=== PATIENT | male | born 1970 | race Caucasian/White ===

== ENCOUNTER 2017-02-07 20:55 | Inpatient (IN) | payer OTHER ==
[~2017-02-07] VITALS: Ht 182.9 cm; Wt 77.3 kg
[2017-02-07] MEDS ORDERED: LORazepam 2 MG/ML, 1ML ONE (21:41)
[2017-02-08] MEDS: LEVETIRACETAM 500 MG TABLET PO SCH ×4 (02:00→21:36)
[2017-02-08] MEDS: THIAMINE 100MG TABLET PO SCH ×2 (09:00→10:00)
[2017-02-08] MEDS: FOLIC ACID 1 MG TABLET PO SCH ×2 (09:00→10:00)
[2017-02-08] MEDS: PHENYTOIN 100 MG CAPSULE PO SCH ×2 (10:00→21:35)
[2017-02-08 15:40] VITALS: BP 113/67
[2017-02-08] MEDS ORDERED: LORazepam 2 MG/ML, 1ML IV PRN ×6 (16:00→16:30)
[2017-02-08] MEDS: ENOXAPARIN 40 MG/0.4 ML SQ SCH (16:00)
[2017-02-08] MEDS: NICOTINE 14MG/24 HR PATCH.TD24 TD SCH (16:00)
[2017-02-08] MEDS ORDERED: LORazepam 0.5MG TABLET PO PRN (16:30)
[2017-02-08] MEDS ORDERED: LORazepam 1MG TABLET PO PRN ×4 (16:30)
[2017-02-08] MEDS ORDERED: GADOBUTROL 7.5 MMOL/7.5 ML PFS ONE (17:19)
[2017-02-08] MEDS ORDERED: PLEASE ENTER HEIGHT AND WEIGHT MC SCH (17:30)
[2017-02-08] MEDS ORDERED: PLEASE ENTER ALLERGIES MC SCH ×2 (17:30)
[2017-02-08 20:01] VITALS: BP 117/77
[2017-02-08] MEDS ORDERED: LEVETIRACETAM 500 MG TABLET PO SCH (21:00)
[2017-02-09] MEDS: POTASSIUM CHLORIDE 20 MEQ, MAGNESIUM SULFATE 1 GM, THIAMINE 100 MG, FOLIC ACID 1 MG, MV... IV SCH (00:30)
[2017-02-09 02:23] VITALS: BP 100/70
[2017-02-09 05:58] LABS: ASPARTATE AMINO TRANSFERASE 120 U/L (15-37); BLOOD UREA NITROGEN 8 mg/dL (7-18)
[2017-02-09 07:58] VITALS: BP 109/71
[2017-02-09] MEDS ORDERED: MAGNESIUM SULFATE PMX 2GM/50ML 50 ML IV ONE (08:00)
[2017-02-09] MEDS ORDERED: POTASSIUM CHLORIDE 20 MEQ TAB.ER.PRT PO ONE (08:00)
[2017-02-09] MEDS: FOLIC ACID 1 MG TABLET PO SCH (08:34)
[2017-02-09] MEDS: THIAMINE 100MG TABLET PO SCH (08:35)
[2017-02-09] MEDS: LEVETIRACETAM 500 MG TABLET PO SCH ×2 (08:35→21:00)
[2017-02-09] MEDS ORDERED: PNEUMOCOCCAL 23 VACCINE IM-VACC ONE (09:00)
[2017-02-09] MEDS: PHENYTOIN 100 MG CAPSULE PO SCH (09:00)
[2017-02-09 09:55] VITALS: BP_SYST 115; BP_SYST 116; BP_SYST 118; BP_DIAS 77; BP_DIAS 79; BP_DIAS 80
[2017-02-09] MEDS: SODIUM CHLORIDE 0.9% 1,000 ML IV SCH ×2 (10:39→23:15)
[2017-02-09 11:17] LABS: DAU SCREEN DISCLAIMER
[2017-02-09] MEDS: NICOTINE 14MG/24 HR PATCH.TD24 TD SCH (13:05)
[2017-02-09 13:25] VITALS: BP 126/72
[2017-02-09 14:13] LABS: ASPARTATE AMINO TRANSFERASE 211 U/L (15-37); BLOOD UREA NITROGEN 8 mg/dL (7-18)
[2017-02-09 14:22] LABS: ASPARTATE AMINO TRANSFERASE 167 U/L (15-37); BLOOD UREA NITROGEN 7 mg/dL (7-18)
[2017-02-09] MEDS: ENOXAPARIN 40 MG/0.4 ML SQ SCH (16:59)
[2017-02-09 19:11] VITALS: BP 127/94
[2017-02-09] MEDS: ZONISAMIDE 50 MG CAPSULE PO SCH (21:00)
[2017-02-09] MEDS: ATORVASTATIN 20 MG TABLET PO SCH (21:00)
[2017-02-10] MEDS: POTASSIUM CHLORIDE 20 MEQ, MAGNESIUM SULFATE 1 GM, THIAMINE 100 MG, FOLIC ACID 1 MG, MV... IV SCH (01:21)
[2017-02-10 01:38] VITALS: BP 134/94
[2017-02-10] MEDS: ASPIRIN 81 MG TABLET EC PO SCH (05:43)
[2017-02-10 06:52] LABS: ASPARTATE AMINO TRANSFERASE 173 U/L (15-37); BLOOD UREA NITROGEN 4 mg/dL (7-18)
[2017-02-10 07:12] VITALS: BP 126/86
[2017-02-10 07:43] VITALS: BP 138/91
[2017-02-10 07:45] VITALS: BP 115/80
[2017-02-10] MEDS: FOLIC ACID 1 MG TABLET PO SCH (09:49)
[2017-02-10] MEDS: PHENYTOIN 100 MG CAPSULE PO SCH (09:49)
[2017-02-10] MEDS: LEVETIRACETAM 500 MG TABLET PO SCH ×2 (09:49→20:01)
[2017-02-10] MEDS: THIAMINE 100MG TABLET PO SCH (09:49)
[2017-02-10] MEDS: SODIUM CHLORIDE 0.9% 1,000 ML IV SCH ×2 (12:38→21:29)
[2017-02-10 14:06] VITALS: BP 103/69
[2017-02-10] MEDS: NICOTINE 14MG/24 HR PATCH.TD24 TD SCH (16:52)
[2017-02-10] MEDS: ENOXAPARIN 40 MG/0.4 ML SQ SCH (16:52)
[2017-02-10 19:31] VITALS: BP 123/84
[2017-02-10] MEDS: ATORVASTATIN 20 MG TABLET PO SCH (20:00)
[2017-02-10] MEDS: ZONISAMIDE 50 MG CAPSULE PO SCH (20:00)
[2017-02-11 01:08] VITALS: BP 117/67
[2017-02-11] MEDS: SODIUM CHLORIDE 0.9% 1,000 ML IV SCH ×2 (04:51→21:11)
[2017-02-11 05:03] LABS: ASPARTATE AMINO TRANSFERASE 387 U/L (15-37); BLOOD UREA NITROGEN 6 mg/dL (7-18)
[2017-02-11] MEDS: POTASSIUM CHLORIDE 20 MEQ, MAGNESIUM SULFATE 1 GM, THIAMINE 100 MG, FOLIC ACID 1 MG, MV... IV SCH (05:46)
[2017-02-11] MEDS: ASPIRIN 81 MG TABLET EC PO SCH (05:46)
[2017-02-11 06:11] LABS: DAU SCREEN DISCLAIMER
[2017-02-11 07:06] VITALS: BP 111/72
[2017-02-11] MEDS: FOLIC ACID 1 MG TABLET PO SCH (10:29)
[2017-02-11] MEDS: LEVETIRACETAM 500 MG TABLET PO SCH ×2 (10:29→21:08)
[2017-02-11] MEDS: THIAMINE 100MG TABLET PO SCH (10:29)
[2017-02-11] MEDS: PHENYTOIN 100 MG CAPSULE PO SCH (10:29)
[2017-02-11 13:27] VITALS: BP 113/86
[2017-02-11] MEDS: ENOXAPARIN 40 MG/0.4 ML SQ SCH (17:40)
[2017-02-11] MEDS: NICOTINE 14MG/24 HR PATCH.TD24 TD SCH (17:40)
[2017-02-11 18:59] VITALS: BP 128/87
[2017-02-11] MEDS: ZONISAMIDE 50 MG CAPSULE PO SCH (21:09)
[2017-02-12 01:59] VITALS: BP 120/78
[2017-02-12 04:28] LABS: BLOOD UREA NITROGEN 10 mg/dL (7-18)
[2017-02-12] MEDS: SODIUM CHLORIDE 0.9% 1,000 ML IV SCH ×3 (05:44→23:22)
[2017-02-12] MEDS: POTASSIUM CHLORIDE 20 MEQ, MAGNESIUM SULFATE 1 GM, THIAMINE 100 MG, FOLIC ACID 1 MG, MV... IV SCH (05:47)
[2017-02-12] MEDS: ASPIRIN 81 MG TABLET EC PO SCH (05:51)
[2017-02-12 07:32] LABS: DIFF TOTAL CELLS COUNTED 100 CELL DIFF
[2017-02-12 07:33] LABS: ANISOCYTOSIS 1+
[2017-02-12 07:38] LABS: VERIFY COUNTS? YES
[2017-02-12 07:48] VITALS: BP 114/74
[2017-02-12] MEDS: LEVETIRACETAM 500 MG TABLET PO SCH ×2 (08:01→20:20)
[2017-02-12] MEDS: FOLIC ACID 1 MG TABLET PO SCH (08:01)
[2017-02-12] MEDS: THIAMINE 100MG TABLET PO SCH (08:01)
[2017-02-12 10:03] LABS: HEPATITIS C VIRUS ANTIBODY Nonreactive (Nonreactive)
[2017-02-12 12:33] VITALS: BP_SYST 111; BP_SYST 133; BP_DIAS 77; BP_DIAS 84
[2017-02-12 12:34] VITALS: BP 116/89
[2017-02-12] MEDS: NICOTINE 14MG/24 HR PATCH.TD24 TD SCH (16:05)
[2017-02-12] MEDS: ENOXAPARIN 40 MG/0.4 ML SQ SCH (16:07)
[2017-02-12 19:37] VITALS: BP 122/81
[2017-02-12] MEDS: ZONISAMIDE 50 MG CAPSULE PO SCH (20:20)
[2017-02-13 02:45] VITALS: BP 120/78
[2017-02-13 05:53] LABS: ASPARTATE AMINO TRANSFERASE 167 U/L (15-37); BLOOD UREA NITROGEN 11 mg/dL (7-18)
[2017-02-13] MEDS: ASPIRIN 81 MG TABLET EC PO SCH (06:37)
[2017-02-13] MEDS: POTASSIUM CHLORIDE 20 MEQ, MAGNESIUM SULFATE 1 GM, THIAMINE 100 MG, FOLIC ACID 1 MG, MV... IV SCH (06:38)
[2017-02-13 07:46] VITALS: BP 116/76
[2017-02-13] MEDS: FOLIC ACID 1 MG TABLET PO SCH (09:02)
[2017-02-13] MEDS: THIAMINE 100MG TABLET PO SCH (09:02)
[2017-02-13] MEDS: LEVETIRACETAM 500 MG TABLET PO SCH (09:02)
[2017-02-13] MEDS ORDERED: LEVE500T53 PO (09:36)
[2017-02-13] MEDS ORDERED: FOLI-17 PO (09:36)
[2017-02-13] MEDS ORDERED: ZONI50CA2 PO (09:36)
[2017-02-13] MEDS ORDERED: ASPI-621 PO (09:36)
[2017-02-13] MEDS ORDERED: THIA100T6 PO (09:36)
[2017-02-13 13:00] VITALS: BP 130/90
[2017-02-13] MEDS: SODIUM CHLORIDE 0.9% 1,000 ML IV SCH (15:30)
[2017-02-13] MEDS: ENOXAPARIN 40 MG/0.4 ML SQ SCH (16:00)
[2017-02-13] MEDS: NICOTINE 14MG/24 HR PATCH.TD24 TD SCH (16:22)
[2017-02-13 17:25] VITALS: BP 105/71
== END 2017-02-13 17:30 | disposition home or self-care (01) | DRG 101 ==
LOC: ED 20:55 → 4NOR 02-08 01:50
PROVIDERS: ADMIT Internal Medicine; ATTEND Internal Medicine
DX: G40.409 Other generalized epilepsy and epileptic syndromes, not intractable, without status epilepticus (principal); F10.239 Alcohol dependence with withdrawal, unspecified; Q21.1 Atrial septal defect; F43.10 Post-traumatic stress disorder, unspecified; F10.229 Alcohol dependence with intoxication, unspecified; Y90.7 Blood alcohol level of 200-239 mg/100 ml; F17.210 Nicotine dependence, cigarettes, uncomplicated; F32.9 Major depressive disorder, single episode, unspecified; D53.9 Nutritional anemia, unspecified; E87.6 Hypokalemia; E83.42 Hypomagnesemia; K70.10 Alcoholic hepatitis without ascites; I67.9 Cerebrovascular disease, unspecified; K76.0 Fatty (change of) liver, not elsewhere classified; H81.10 Benign paroxysmal vertigo, unspecified ear; Z86.73 Personal history of transient ischemic attack (TIA), and cerebral infarction without residual deficits; Z79.899 Other long term (current) drug therapy
CPT/HCPCS: 36415; 70450; 70553; 76700; 80048; 80053; 80061; 80074; 80076; 80185; 80307; 82040; 82248; 82550; 82607; 82746; 83036; 83735; 84100; 84439; 84443; 85025; 85610; 85730; 90732; 93306; 93880; 95819; 96374; A9585; J1650; J3411; J3475; J3480; J2060; J7030

== ENCOUNTER 2017-07-28 12:23 | Inpatient (IN) | payer MEDICAID ==
[~2017-07-28] VITALS: Ht 182.9 cm; Wt 71.9 kg
[~2017-07-28 12:23] MED LIST: ASPI-621 PO; FOLI-17 PO; LEVE500T53 PO; THIA100T6 PO; ZONI50CA2 PO
[2017-07-28] MEDS ORDERED: SODIUM CHLORIDE FLUSH 10ML SYR IVF ONE (12:30)
[2017-07-28] MEDS ORDERED: LORazepam 2 MG/ML, 1ML IVPush ONE (12:30)
[2017-07-28] MEDS ORDERED: SODIUM CHLORIDE 0.9% 1,000ML IVBOLUS ONE (12:30)
[2017-07-28] MEDS ORDERED: LEVETIRACETAM 500 MG in SODIUM CHLORIDE 0.9% 100 ML IV ONE (12:30)
[2017-07-28] MEDS ORDERED: LORazepam 2 MG/ML, 1ML ONE ×3 (12:46→15:17)
[2017-07-28 12:48] LABS: HEMATOCRIT 38.5 % (39.2-51.8); HEMOGLOBIN 13.4 g/dL (13.7-18.0); WHITE BLOOD COUNT 2.8 x10^3/uL (3.4-10)
[2017-07-28 12:59] LABS: BLOOD UREA NITROGEN 6 mg/dL (7-18)
[2017-07-28] MEDS ORDERED: PLEASE ENTER HEIGHT AND WEIGHT MC SCH (13:00)
[2017-07-28 13:02] LABS: ASPARTATE AMINO TRANSFERASE 405 U/L (15-37)
[2017-07-28] MEDS ORDERED: MAGNESIUM SULFATE IV ONE (14:30)
[2017-07-28] MEDS ORDERED: THIAMINE IV ONE (14:30)
[2017-07-28] MEDS ORDERED: MAGNESIUM SULFATE 4 GM, THIAMINE 100 MG, FOLIC ACID 1 MG, MVI ADULT 10 ML in SODIUM CHL... IV ONE (14:30)
[2017-07-28] MEDS ORDERED: [UNRECOGNIZED DRUG - OTHER] IV ONE (14:30)
[2017-07-28] MEDS ORDERED: MVI ADULT IV ONE (14:30)
[2017-07-28] MEDS: LORazepam 2 MG/ML, 1ML IVPush PRN ×2 (14:34→15:19)
[2017-07-28 16:00] VITALS: BP 124/85
[2017-07-28] MEDS ORDERED: DOCUSATE 100 MG CAPSULE PO PRN (16:00)
[2017-07-28] MEDS ORDERED: LORazepam 2 MG/ML, 1ML IV PRN ×6 (16:00)
[2017-07-28] MEDS ORDERED: LORazepam 1MG TABLET PO PRN ×3 (16:00)
[2017-07-28] MEDS ORDERED: ONDANSETRON 2MG/ML, 2ML IV PRN (16:00)
[2017-07-28] MEDS ORDERED: PHARMACY MAY ADJ FOR RENAL FX MC PRN (16:00)
[2017-07-28] MEDS ORDERED: POTASSIUM CHLORIDE 20 MEQ TAB.ER.PRT PO SCH (17:00)
[2017-07-28] MEDS: HEPARIN 5,000 UNITS/ML, 1ML SQ SCH ×2 (17:27→23:29)
[2017-07-28] MEDS: CHLORDIAZEPOXIDE 10 MG CAPSULE PO SCH ×2 (17:27→20:27)
[2017-07-28] MEDS: ASPIRIN 81 MG TABLET EC PO SCH (17:27)
[2017-07-28] MEDS: SODIUM CHLORIDE 0.9% 1,000 ML IV SCH (17:27)
[2017-07-28] MEDS: LORazepam 1MG TABLET PO PRN (18:08)
[2017-07-28 19:00] VITALS: BP 121/80
[2017-07-28] MEDS: LEVETIRACETAM 500 MG TABLET PO SCH (20:27)
[2017-07-28] MEDS: ZONISAMIDE 50 MG CAPSULE PO SCH (20:27)
[2017-07-28 23:07] LABS: DAU SCREEN DISCLAIMER
[2017-07-29 01:57] VITALS: BP 122/84
[2017-07-29] MEDS: SODIUM CHLORIDE 0.9% 1,000 ML IV SCH (05:03)
[2017-07-29] MEDS: ASPIRIN 81 MG TABLET EC PO SCH (05:27)
[2017-07-29 06:11] LABS: HEMATOCRIT 37.4 % (39.2-51.8); HEMOGLOBIN 13.2 g/dL (13.7-18.0); WHITE BLOOD COUNT 2.8 x10^3/uL (3.4-10)
[2017-07-29 06:23] LABS: ASPARTATE AMINO TRANSFERASE 310 U/L (15-37); BLOOD UREA NITROGEN 3 mg/dL (7-18)
[2017-07-29 08:05] VITALS: BP 124/84
[2017-07-29] MEDS ORDERED: POTASSIUM CHLORIDE IV SCH (09:00)
[2017-07-29] MEDS ORDERED: MAGNESIUM SULFATE IV SCH (09:00)
[2017-07-29] MEDS ORDERED: MVI ADULT IV SCH (09:00)
[2017-07-29] MEDS ORDERED: [UNRECOGNIZED DRUG - OTHER] IV SCH (09:00)
[2017-07-29] MEDS ORDERED: THIAMINE IV SCH (09:00)
[2017-07-29] MEDS: THIAMINE 100MG TABLET PO SCH (10:31)
[2017-07-29] MEDS: HEPARIN 5,000 UNITS/ML, 1ML SQ SCH ×2 (10:31→16:48)
[2017-07-29] MEDS: FOLIC ACID 1 MG TABLET PO SCH (10:31)
[2017-07-29] MEDS: LEVETIRACETAM 500 MG TABLET PO SCH ×2 (10:31→20:31)
[2017-07-29] MEDS: CHLORDIAZEPOXIDE 10 MG CAPSULE PO SCH (10:42)
[2017-07-29] MEDS: MULTIVIT.W/IRON, MINERALS ORAL SOL PO SCH (10:42)
[2017-07-29 16:01] VITALS: BP 112/79
[2017-07-29] MEDS: POTASSIUM CHLORIDE 20 MEQ TAB.ER.PRT PO SCH (16:48)
[2017-07-29] MEDS: IBUPROFEN 200 MG TABLET PO PRN (16:48)
[2017-07-29 19:12] VITALS: BP 122/81
[2017-07-29] MEDS: ZONISAMIDE 50 MG CAPSULE PO SCH (20:31)
[2017-07-30] MEDS: HEPARIN 5,000 UNITS/ML, 1ML SQ SCH ×4 (00:08→20:58)
[2017-07-30 02:30] VITALS: BP 124/83
[2017-07-30 05:05] LABS: HEMATOCRIT 39.9 % (39.2-51.8); HEMOGLOBIN 13.9 g/dL (13.7-18.0); WHITE BLOOD COUNT 3.2 x10^3/uL (3.4-10)
[2017-07-30 05:15] LABS: ASPARTATE AMINO TRANSFERASE 667 U/L (15-37); BLOOD UREA NITROGEN 11 mg/dL (7-18)
[2017-07-30] MEDS: ASPIRIN 81 MG TABLET EC PO SCH (05:31)
[2017-07-30 07:20] VITALS: BP 139/93
[2017-07-30] MEDS: THIAMINE 100MG TABLET PO SCH (08:34)
[2017-07-30] MEDS: POTASSIUM CHLORIDE 20 MEQ TAB.ER.PRT PO SCH (08:34)
[2017-07-30] MEDS: MULTIVIT.W/IRON, MINERALS ORAL SOL PO SCH (08:34)
[2017-07-30] MEDS: IBUPROFEN 200 MG TABLET PO PRN ×2 (08:34→20:58)
[2017-07-30] MEDS: FOLIC ACID 1 MG TABLET PO SCH (08:34)
[2017-07-30] MEDS: LEVETIRACETAM 500 MG TABLET PO SCH ×2 (08:34→20:58)
[2017-07-30] MEDS: LORazepam 1MG TABLET PO PRN (08:34)
[2017-07-30 14:15] VITALS: BP 109/76
[2017-07-30] MEDS: ZONISAMIDE 50 MG CAPSULE PO SCH (20:58)
[2017-07-30] MEDS: LORazepam 0.5MG TABLET PO PRN (20:58)
[2017-07-31] VITALS: BP 127/90
[2017-07-31 03:57] VITALS: BP 117/81
[2017-07-31 05:14] LABS: HEMATOCRIT 39.8 % (39.2-51.8); HEMOGLOBIN 14.1 g/dL (13.7-18.0); WHITE BLOOD COUNT 3.3 x10^3/uL (3.4-10)
[2017-07-31 05:34] LABS: ASPARTATE AMINO TRANSFERASE 444 U/L (15-37); BLOOD UREA NITROGEN 13 mg/dL (7-18)
[2017-07-31] MEDS: IBUPROFEN 200 MG TABLET PO PRN ×2 (05:43→20:27)
[2017-07-31] MEDS: ASPIRIN 81 MG TABLET EC PO SCH (05:43)
[2017-07-31] MEDS: LORazepam 0.5MG TABLET PO PRN (05:43)
[2017-07-31] MEDS: HEPARIN 5,000 UNITS/ML, 1ML SQ SCH ×3 (05:43→20:27)
[2017-07-31 08:17] VITALS: BP 113/72
[2017-07-31] MEDS: FOLIC ACID 1 MG TABLET PO SCH (09:13)
[2017-07-31] MEDS: MULTIVIT.W/IRON, MINERALS ORAL SOL PO SCH (09:13)
[2017-07-31] MEDS: THIAMINE 100MG TABLET PO SCH (09:13)
[2017-07-31] MEDS: LEVETIRACETAM 500 MG TABLET PO SCH ×2 (09:13→20:27)
[2017-07-31 16:38] VITALS: BP 113/76
[2017-07-31 20:16] VITALS: BP 107/74
[2017-07-31] MEDS: ZONISAMIDE 50 MG CAPSULE PO SCH (20:27)
[2017-08-01] VITALS (7 sets, daily range): BP systolic 91–116; BP diastolic 64–77
[2017-08-01] MEDS: HEPARIN 5,000 UNITS/ML, 1ML SQ SCH ×3 (05:48→21:35)
[2017-08-01] MEDS: ASPIRIN 81 MG TABLET EC PO SCH (05:48)
[2017-08-01] MEDS ORDERED: MECLIZINE 12.5 MG TABLET PO PRN (09:00)
[2017-08-01] MEDS ORDERED: SODIUM CHLORIDE NASAL SPRAY 45ML BOTTLE NAS PRN (09:00)
[2017-08-01] MEDS: THIAMINE 100MG TABLET PO SCH (09:01)
[2017-08-01] MEDS: FOLIC ACID 1 MG TABLET PO SCH (09:01)
[2017-08-01] MEDS: LEVETIRACETAM 500 MG TABLET PO SCH ×2 (09:01→21:34)
[2017-08-01] MEDS: MULTIVIT.W/IRON, MINERALS ORAL SOL PO SCH (09:01)
[2017-08-01] MEDS: LORATADINE 10 MG TABLET PO SCH (11:12)
[2017-08-01] MEDS: IBUPROFEN 200 MG TABLET PO PRN (14:19)
[2017-08-01] MEDS: ZONISAMIDE 50 MG CAPSULE PO SCH (21:36)
[2017-08-02 01:30] VITALS: BP 115/78
[2017-08-02 02:00] VITALS: BP 105/70
[2017-08-02 06:08] LABS: BLOOD UREA NITROGEN 20 mg/dL (7-18)
[2017-08-02 06:14] LABS: HEMATOCRIT 40.4 % (39.2-51.8); HEMOGLOBIN 14.2 g/dL (13.7-18.0); WHITE BLOOD COUNT 5.5 x10^3/uL (3.4-10)
[2017-08-02 06:15] LABS: ASPARTATE AMINO TRANSFERASE 126 U/L (15-37)
[2017-08-02] MEDS: HEPARIN 5,000 UNITS/ML, 1ML SQ SCH ×3 (06:20→20:33)
[2017-08-02] MEDS: ASPIRIN 81 MG TABLET EC PO SCH (06:20)
[2017-08-02 06:43] LABS: DIFF TOTAL CELLS COUNTED 100 CELL DIFF
[2017-08-02 06:47] LABS: VERIFY COUNTS? YES
[2017-08-02 06:48] LABS: ANISOCYTOSIS 1+
[2017-08-02 07:04] VITALS: BP_SYST 101; BP_SYST 119; BP_DIAS 64; BP_DIAS 67; BP_DIAS 81
[2017-08-02] MEDS: MULTIVIT.W/IRON, MINERALS ORAL SOL PO SCH (09:16)
[2017-08-02] MEDS: LEVETIRACETAM 500 MG TABLET PO SCH ×2 (09:16→20:32)
[2017-08-02] MEDS: THIAMINE 100MG TABLET PO SCH (09:16)
[2017-08-02] MEDS: FOLIC ACID 1 MG TABLET PO SCH (09:16)
[2017-08-02] MEDS: LORATADINE 10 MG TABLET PO SCH (09:34)
[2017-08-02 13:07] VITALS: BP 93/63
[2017-08-02] MEDS ORDERED: NICOTINE 7 MG/24 HR PATCH.TD24 TD SCH (14:00)
[2017-08-02] MEDS: MECLIZINE 12.5 MG TABLET PO SCH ×2 (17:41→20:32)
[2017-08-02] MEDS: IBUPROFEN 200 MG TABLET PO PRN (17:56)
[2017-08-02 18:01] VITALS: BP 108/74
[2017-08-02 20:00] VITALS: BP 99/66
[2017-08-02] MEDS: ZONISAMIDE 50 MG CAPSULE PO SCH (20:33)
[2017-08-03 02:00] VITALS: BP 100/64
[2017-08-03] MEDS: ASPIRIN 81 MG TABLET EC PO SCH (05:23)
[2017-08-03] MEDS: HEPARIN 5,000 UNITS/ML, 1ML SQ SCH (05:24)
[2017-08-03] MEDS: IBUPROFEN 200 MG TABLET PO PRN (06:31)
[2017-08-03 07:53] VITALS: BP 108/76
[2017-08-03] MEDS ORDERED: THIA100T6 PO (09:49)
[2017-08-03] MEDS ORDERED: ZONI50CA2 PO (09:49)
[2017-08-03] MEDS ORDERED: LORA10TA75 PO (09:49)
[2017-08-03] MEDS ORDERED: LEVE500T53 PO (09:49)
[2017-08-03] MEDS ORDERED: FOLI-17 PO (09:49)
[2017-08-03] MEDS: THIAMINE 100MG TABLET PO SCH (10:03)
[2017-08-03] MEDS: FOLIC ACID 1 MG TABLET PO SCH (10:03)
[2017-08-03] MEDS: LORATADINE 10 MG TABLET PO SCH (10:03)
[2017-08-03] MEDS: LEVETIRACETAM 500 MG TABLET PO SCH (10:03)
[2017-08-03] MEDS: MECLIZINE 12.5 MG TABLET PO SCH (10:03)
[2017-08-03] MEDS: MULTIVIT.W/IRON, MINERALS ORAL SOL PO SCH (10:03)
[2017-08-03] MEDS ORDERED: FLU VACC QS2017-18 (36MOS+) UP/PF 0.5 ML IM-VACC ONE (11:00)
[2017-08-03] MEDS ORDERED: PNEUMOCOCCAL 23 VACCINE IM-VACC ONE (11:00)
== END 2017-08-03 11:45 | DRG 101 ==
LOC: ED 12:50 → EDIP 14:22 → 4WST 15:45
PROVIDERS: ADMIT Internal Medicine; ATTEND Internal Medicine
DX: G40.209 Localization-related (focal) (partial) symptomatic epilepsy and epileptic syndromes with complex partial seizures, not intractable, without status epilepticus (principal); D69.6 Thrombocytopenia, unspecified; F05 Delirium due to known physiological condition; B19.10 Unspecified viral hepatitis B without hepatic coma; E83.42 Hypomagnesemia; E87.1 Hypo-osmolality and hyponatremia; F10.239 Alcohol dependence with withdrawal, unspecified; W18.39XA Other fall on same level, initial encounter; D53.9 Nutritional anemia, unspecified; K72.90 Hepatic failure, unspecified without coma; B19.20 Unspecified viral hepatitis C without hepatic coma; D72.819 Decreased white blood cell count, unspecified; E86.0 Dehydration; E87.6 Hypokalemia; F17.210 Nicotine dependence, cigarettes, uncomplicated; F43.10 Post-traumatic stress disorder, unspecified; K76.0 Fatty (change of) liver, not elsewhere classified; Z59.0 Homelessness; Z79.82 Long term (current) use of aspirin; Z79.899 Other long term (current) drug therapy; Z86.73 Personal history of transient ischemic attack (TIA), and cerebral infarction without residual deficits; Z91.14 Patient's other noncompliance with medication regimen; Y93.89 Activity, other specified; Y92.098 Other place in other non-institutional residence as the place of occurrence of the external cause; Y99.8 Other external cause status; Z71.41 Alcohol abuse counseling and surveillance of alcoholic; Z23 Encounter for immunization
CPT/HCPCS: 36415; 70450; 80053; 80307; 81003; 82607; 82746; 83735; 84100; 84443; 85025; 85610; 90686; 90732; 93005; 96365; 96375; 96376; J1644; J1953; J3411; J3475; G0479; J2060; J7030

== ENCOUNTER 2017-08-25 21:06 | Emergency (ER) | payer MEDICAID ==
[~2017-08-25] VITALS: Ht 180.3 cm; Wt 70.0 kg
[~2017-08-25 21:06] MED LIST changes: +LORA10TA75 PO
[2017-08-25 22:10] LABS: HEMATOCRIT 40.2 % (39.2-51.8); HEMOGLOBIN 13.9 g/dL (13.7-18.0); WHITE BLOOD COUNT 5.8 x10^3/uL (3.4-10)
[2017-08-25 22:23] LABS: BLOOD UREA NITROGEN 11 mg/dL (7-18)
[2017-08-25 22:50] VITALS: BP 95/62
== END 2017-08-26 00:12 | disposition short-term general hospital (02) ==
LOC: ED 22:21
DX: G40.919 Epilepsy, unspecified, intractable, without status epilepticus (principal); Z86.73 Personal history of transient ischemic attack (TIA), and cerebral infarction without residual deficits
CPT/HCPCS: 36415; 80048; 82040; 85025; 93005; 99285

== ENCOUNTER 2017-10-22 17:11 | Emergency (ER) | payer MEDICAID ==
[~2017-10-22] VITALS: Ht 180.3 cm; Wt 75.0 kg
[~2017-10-22 17:11] MED LIST changes: +ASPI-515 PO; +LEVE100020 PO; +MECL12.52 PO; +MULT-658 PO; +THIA100T10 PO; +ZONI100C2 PO
[2017-10-22 18:01] LABS: ACETONE, SERUM Negative (Negative)
[2017-10-22 18:04] LABS: ALANINE AMINOTRANSFERASE 27 U/L (12-78); ALBUMIN 3.9 g/dL (3.4-5.0); ANION GAP 9 mmol/L (5-15); CALCIUM 8.6 mg/dL (8.5-10.1); CHLORIDE 115 mmol/L (98-107)
[2017-10-22 18:07] LABS: ALKALINE PHOSPHATASE 60 U/L (45-117); BILIRUBIN,TOTAL 0.4 mg/dL (0.2-1.0); CREATININE 0.96 mg/dL (0.7-1.3); TOTAL PROTEIN 7.7 g/dL (6.4-8.2)
[2017-10-22 20:41] VITALS: BP 98/65
== END 2017-10-22 21:53 | disposition home or self-care (01) ==
LOC: ED 19:13
DX: F10.129 Alcohol abuse with intoxication, unspecified (principal); F43.10 Post-traumatic stress disorder, unspecified; Z86.73 Personal history of transient ischemic attack (TIA), and cerebral infarction without residual deficits
CPT/HCPCS: 36415; 80053; 80307; 82010; 82800; 83930; 99284

== ENCOUNTER 2018-04-12 17:43 | Emergency (ER) | payer MEDICAID ==
[~2018-04-12] VITALS: Ht 170.2 cm; Wt 60.0 kg
[~2018-04-12 17:43] MED LIST changes: -THIA100T6 PO; +THIA100T67 PO
[2018-04-12 18:40] LABS: MEAN CORPUSCULAR HEMOGLOBIN 33.4 pg (27.5-34.5); MEAN CORPUSCULAR HGB CONC 35.2 g/dL (33.2-36.2); MEAN CORPUSCULAR VOLUME 94.8 fL (81-97); PLATELET COUNT 243 x10^3/uL (130-400); RED BLOOD COUNT 4.72 x10^6/uL (4.38-5.82); RED CELL DISTRIBUTION WIDTH 13.6 % (9.4-14.8)
[2018-04-12 18:46] LABS: BASOPHILS # (AUTO) 0.09 x10^3/uL (0-0.1); BASOPHILS % (AUTO) 1 % (0-1); EOSINOPHILS # (AUTO) 0.09 x10^3/uL (0-0.4); EOSINOPHILS % (AUTO) 1 % (1-7); LYMPHOCYTES # (AUTO) 2.76 x10^3/uL (1-3.4); LYMPHOCYTES % (AUTO) 32 % (22-44); MONOCYTES # (AUTO) 0.34 x10^3/uL (0.2-0.8); MONOCYTES % (AUTO) 4 % (2-9); NEUTROPHILS % (AUTO) 62 % (42-75)
[2018-04-12 18:49] LABS: ALANINE AMINOTRANSFERASE 34 U/L (12-78); ALBUMIN 3.7 g/dL (3.4-5.0); ANION GAP 11 mmol/L (5-15); CALCIUM 8.2 mg/dL (8.5-10.1); CHLORIDE 109 mmol/L (98-107)
[2018-04-12 18:51] LABS: ALKALINE PHOSPHATASE 94 U/L (45-117); BILIRUBIN,TOTAL 0.2 mg/dL (0.2-1.0); TOTAL PROTEIN 7.2 g/dL (6.4-8.2)
[2018-04-12 18:52] LABS: MD NO
[2018-04-12 22:04] VITALS: BP 122/62
== END 2018-04-12 22:06 | disposition home or self-care (01) ==
LOC: ED 21:53
DX: F10.220 Alcohol dependence with intoxication, uncomplicated (principal); F43.10 Post-traumatic stress disorder, unspecified; Z86.73 Personal history of transient ischemic attack (TIA), and cerebral infarction without residual deficits; Z79.899 Other long term (current) drug therapy
CPT/HCPCS: 36415; 80053; 80307; 85025; 99284